=== PATIENT | female | born 1960 | race Caucasian/White ===

== ENCOUNTER → 2020-05-11 | Outpatient (CLI) | payer BC | END | disposition home or self-care (01) | LOC: STAR 08:20 | PROVIDERS: ATTEND Anesthesiology | DX: Z01.818 Encounter for other preprocedural examination (principal); Z11.59 Encounter for screening for other viral diseases | CPT/HCPCS: 36415; 87635 ==

== ENCOUNTER 2020-05-14 08:10 | Inpatient (IN) | payer BC ==
[~2020-05-14] VITALS: Ht 165.1 cm; Wt 65.0 kg
[~2020-05-14 08:10] MED LIST: BUPIVACAINE/PF-EPI 0.5% 1:200K ONE; INDOCYANINE GREEN 25 MG VIAL ONE
[2020-05-14] MEDS ORDERED: MIDAZOLAM 1 MG/ML, 2ML ONE (08:28)
[2020-05-14] MEDS ORDERED: FENTANYL PF 250 MCG/5ML ONE (08:28)
[2020-05-14] MEDS ORDERED: LACTATED RINGERS 1,000 ML IV SCH (09:12)
[2020-05-14] MEDS ORDERED: NONE PER PT (09:14)
[2020-05-14] MEDS ORDERED: CHLORHEXIDINE 15 ML UDC ONE (09:19)
[2020-05-14] MEDS ORDERED: CHLORHEXIDINE 15 ML UDC MM ONE (09:30)
[2020-05-14 09:38] VITALS: BP 108/65
[2020-05-14] MEDS ORDERED: METRONIDAZOLE PMX 500MG/100ML 100 ML ONE (09:49)
[2020-05-14] MEDS ORDERED: FAMOTIDINE 20 MG TABLET ONE (09:52)
[2020-05-14] MEDS ORDERED: ACETAMINOPHEN 500 MG TABLET ONE (09:53)
[2020-05-14 09:58] LABS: BASOPHILS # (AUTO) 0.03 x10^3/uL (0-0.1); BASOPHILS % (AUTO) 1 % (0-1); EOSINOPHILS % (AUTO) 2 % (1-7); LYMPHOCYTES # (AUTO) 1.21 x10^3/uL (1-3.4); LYMPHOCYTES % (AUTO) 24 % (22-44); MD NO; MEAN CORPUSCULAR HEMOGLOBIN 29.9 pg (27.0-34.8); MEAN CORPUSCULAR HGB CONC 32.8 g/dL (32.4-35.8); MEAN CORPUSCULAR VOLUME 91.2 fL (80-100); MEAN PLATELET VOLUME 9.3 fL (7.4-10.4); MONOCYTES # (AUTO) 0.32 x10^3/uL (0.2-0.8); MONOCYTES % (AUTO) 6 % (2-9); NEUTROPHILS # (AUTO) 3.38 x10^3/uL (1.8-6.8); NEUTROPHILS % (AUTO) 67 % (42-75); PLATELET COUNT 229 x10^3/uL (130-400); RED BLOOD COUNT 4.86 x10^6/uL (3.82-5.3); RED CELL DISTRIBUTION WIDTH 13.4 % (9.6-15.2)
[2020-05-14] MEDS ORDERED: ACETAMINOPHEN 500 MG TABLET PO ONE (10:00)
[2020-05-14] MEDS ORDERED: FAMOTIDINE 20 MG TABLET PO ONE (10:00)
[2020-05-14 10:03] LABS: ALANINE AMINOTRANSFERASE 27 U/L (12-78); ALBUMIN 4.3 g/dL (3.4-5.0); ANION GAP 6 mmol/L (5-15); CALCIUM 9.5 mg/dL (8.5-10.1); CHLORIDE 113 mmol/L (98-107); CREATININE 0.94 mg/dL (0.55-1.02)
[2020-05-14 10:06] LABS: ALKALINE PHOSPHATASE 71 U/L (45-117); BILIRUBIN,TOTAL 0.6 mg/dL (0.2-1.0); TOTAL PROTEIN 7.5 g/dL (6.4-8.2)
[2020-05-14] MEDS ORDERED: CEFAZOLIN 1,000 MG ONE (10:26)
[2020-05-14] MEDS ORDERED: EPHEDRINE 50 MG/ML, 1ML ONE (10:52)
[2020-05-14] MEDS ORDERED: hydrALAzine 20 MG/ML, 1ML IV PRN (11:00)
[2020-05-14] MEDS ORDERED: OXYcodone 5 MG/5 ML ORAL.SOL UDC PO PRN (11:00)
[2020-05-14] MEDS ORDERED: PROMETHAZINE 25 MG/ML, 1ML IVPush PRN (11:00)
[2020-05-14] MEDS ORDERED: LABETALOL 5MG/ML, 20ML IV PRN (11:00)
[2020-05-14] MEDS ORDERED: MEPERIDINE/PF 25MG/0.5ML IVPush PRN (11:00)
[2020-05-14] MEDS ORDERED: ONDANSETRON 2MG/ML, 2ML IVPush PRN (11:00)
[2020-05-14] MEDS ORDERED: ONDANSETRON 2MG/ML, 2ML ONE ×2 (12:24→13:53)
[2020-05-14] MEDS ORDERED: ROCURONIUM 10MG/ML,5ML ONE (12:24)
[2020-05-14] MEDS ORDERED: DEXAMETHASONE 4 MG/ML, 1ML ONE ×2 (12:24)
[2020-05-14] MEDS ORDERED: PROPOFOL 10 MG/ML, 20ML ONE (12:24)
[2020-05-14] MEDS ORDERED: OXYcodone 5 MG/5 ML ORAL.SOL UDC ONE (13:47)
[2020-05-14] MEDS ORDERED: FENTANYL PF 100 MCG/2ML ONE (13:48)
[2020-05-14] MEDS: FENTANYL PF 100 MCG/2ML IV PRN ×2 (13:50→13:58)
[2020-05-14] MEDS ORDERED: DIPHENHYDRAMINE 50 MG/ML, 1ML IVPush PRN (15:30)
[2020-05-14] MEDS ORDERED: ONDANSETRON 2MG/ML, 2ML IV PRN (15:30)
[2020-05-14] MEDS: GABAPENTIN 300 MG CAPSULE PO SCH ×2 (16:16→21:13)
[2020-05-14] MEDS: ACETAMINOPHEN 500 MG TABLET PO SCH ×2 (16:17→21:13)
[2020-05-14] MEDS: OXYcodone IR 5MG TABLET PO PRN ×2 (16:20→20:01)
[2020-05-14] MEDS: D5%-0.45NACL+KCL 20MEQ 1,000 ML IV SCH (18:00)
[2020-05-14 21:27] VITALS: BP 104/65
[2020-05-15 00:22] VITALS: BP 103/66
[2020-05-15 00:53] VITALS: BP 97/60
[2020-05-15] MEDS: OXYcodone IR 5MG TABLET PO PRN ×2 (03:34→14:21)
[2020-05-15] MEDS: ACETAMINOPHEN 500 MG TABLET PO SCH ×5 (03:34→23:47)
[2020-05-15 04:13] VITALS: BP 99/60
[2020-05-15 06:14] LABS: ALBUMIN 3.4 g/dL (3.4-5.0); ANION GAP 7 mmol/L (5-15); CALCIUM 8.7 mg/dL (8.5-10.1); CHLORIDE 106 mmol/L (98-107); CREATININE 0.73 mg/dL (0.55-1.02)
[2020-05-15 06:22] LABS: BASOPHILS # (AUTO) 0.03 x10^3/uL (0-0.1); BASOPHILS % (AUTO) 0 % (0-1); EOSINOPHILS # (AUTO) 0.07 x10^3/uL (0-0.4); EOSINOPHILS % (AUTO) 1 % (1-7); LYMPHOCYTES % (AUTO) 12 % (22-44); MD NO; MEAN CORPUSCULAR HEMOGLOBIN 29.5 pg (27.0-34.8); MEAN CORPUSCULAR HGB CONC 32.7 g/dL (32.4-35.8); MEAN CORPUSCULAR VOLUME 90.4 fL (80-100); MEAN PLATELET VOLUME 9.8 fL (7.4-10.4); MONOCYTES # (AUTO) 0.66 x10^3/uL (0.2-0.8); MONOCYTES % (AUTO) 7 % (2-9); NEUTROPHILS # (AUTO) 7.82 x10^3/uL (1.8-6.8); NEUTROPHILS % (AUTO) 80 % (42-75); PLATELET COUNT 207 x10^3/uL (130-400); RED BLOOD COUNT 4.38 x10^6/uL (3.82-5.3)
[2020-05-15 07:20] VITALS: BP 102/55
[2020-05-15] MEDS: D5%-0.45NACL+KCL 20MEQ 1,000 ML IV SCH ×2 (07:41→20:57)
[2020-05-15] MEDS: GABAPENTIN 300 MG CAPSULE PO SCH ×3 (09:48→21:00)
[2020-05-15] MEDS: ENOXAPARIN 40 MG/0.4 ML SQ SCH (09:48)
[2020-05-15 14:00] VITALS: BP 106/53
[2020-05-15 18:26] VITALS: BP 110/69
[2020-05-16 00:01] VITALS: BP 97/60
[2020-05-16] MEDS: GABAPENTIN 300 MG CAPSULE PO SCH ×2 (01:39→08:14)
[2020-05-16] MEDS: ACETAMINOPHEN 500 MG TABLET PO SCH ×2 (05:18→10:55)
[2020-05-16 05:20] LABS: ALBUMIN 3.1 g/dL (3.4-5.0); ANION GAP 4 mmol/L (5-15); CALCIUM 8.3 mg/dL (8.5-10.1); CHLORIDE 111 mmol/L (98-107)
[2020-05-16 05:28] LABS: BASOPHILS # (AUTO) 0.04 x10^3/uL (0-0.1); BASOPHILS % (AUTO) 1 % (0-1); EOSINOPHILS # (AUTO) 0.16 x10^3/uL (0-0.4); EOSINOPHILS % (AUTO) 2 % (1-7); LYMPHOCYTES # (AUTO) 1.44 x10^3/uL (1-3.4); LYMPHOCYTES % (AUTO) 21 % (22-44); MD NO; MEAN CORPUSCULAR HEMOGLOBIN 29.5 pg (27.0-34.8); MEAN CORPUSCULAR HGB CONC 32.7 g/dL (32.4-35.8); MEAN CORPUSCULAR VOLUME 90.2 fL (80-100); MEAN PLATELET VOLUME 9.6 fL (7.4-10.4); MONOCYTES # (AUTO) 0.36 x10^3/uL (0.2-0.8); MONOCYTES % (AUTO) 5 % (2-9); NEUTROPHILS # (AUTO) 4.75 x10^3/uL (1.8-6.8); NEUTROPHILS % (AUTO) 70 % (42-75); PLATELET COUNT 189 x10^3/uL (130-400); RED BLOOD COUNT 4.16 x10^6/uL (3.82-5.3); RED CELL DISTRIBUTION WIDTH 13.7 % (9.6-15.2)
[2020-05-16 05:30] LABS: CREATININE 0.68 mg/dL (0.55-1.02)
[2020-05-16 08:00] VITALS: BP 107/64
[2020-05-16] MEDS: ENOXAPARIN 40 MG/0.4 ML SQ SCH (08:15)
[2020-05-16] MEDS ORDERED: CELE200C PO (09:00)
[2020-05-16] MEDS ORDERED: GABA300C PO (09:00)
[2020-05-16] MEDS ORDERED: ENOX40SY4 SQ (09:00)
[2020-05-16] MEDS ORDERED: OXYC5TAB3 PO (09:00)
[2020-05-16 10:55] VITALS: BP 99/63
== END 2020-05-16 11:00 | disposition home or self-care (01) | DRG 331 ==
LOC: ORIP 08:10 → 4NE 14:53
PROVIDERS: ADMIT Surgery; ATTEND Surgery
PROC: 0DTNFZZ Resection of Sigmoid Colon, Via Natural or Artificial Opening With Percutaneous Endoscopic Assistance (ICD-10-PCS; principal; 2020-05-14 10:00)
PROC: 8E0W8CZ Robotic Assisted Procedure of Trunk Region, Via Natural or Artificial Opening Endoscopic (ICD-10-PCS; 2020-05-14 10:00)
DX: C19 Malignant neoplasm of rectosigmoid junction (principal); Z90.49 Acquired absence of other specified parts of digestive tract; Z88.1 Allergy status to other antibiotic agents; Z88.2 Allergy status to sulfonamides; Z83.3 Family history of diabetes mellitus; Z82.49 Family history of ischemic heart disease and other diseases of the circulatory system
CPT/HCPCS: 36415; 80048; 80053; 82040; 85025; 86140; 86850; 86900; 88305; 88309; 93005; C1729; G0378; J0690; J1100; J1650; J2250; J2405; J2704; J3010; J7120